=== PATIENT | male | born 1995 | race African-American/Black ===

== ENCOUNTER 2021-04-29 01:50 | Emergency (ER) | payer SELFPAY ==
[~2021-04-29] VITALS: Ht 185.4 cm; Wt 104.8 kg
[2021-04-29 01:54] VITALS: BP 132/86
== END 2021-04-29 03:41 | disposition home or self-care (01) ==
LOC: ED 03:30
DX: U07.1 COVID-19 (principal); J40 Bronchitis, not specified as acute or chronic; R07.89 Other chest pain; J45.909 Unspecified asthma, uncomplicated